=== PATIENT | male | born 1955 | race Caucasian/White ===

== ENCOUNTER 2025-03-28 07:54 | Day surgery (SDC) | payer MEDICARE, MEDICAID ==
[~2025-03-28] VITALS: Ht 160 cm; Wt 118.3 kg
[2025-03-28] MEDS: clindamycin-Cleocin 900mg/D5W 50 ML IV ONE (05:30)
[~2025-03-28 07:54] MED LIST: ASPI-1397 PO; BUPIVAcaine/PF 2.5mg/ml (0.25%) 10ml vial ONE; CYAN-36 PO; DULO30CA52 PO; FEXO-404 PO; GABA-535 PO; HYDR-3965 PO; INSU100V41 SQ; LIDOcaine 2% (20mg/ml) 5ml vial ONE; MELO-102 PO; SIMV-45 PO; TAMS-55 PO; TIRZ12.5 SQ; TORS5TAB11 PO; TURMERIC
[2025-03-28 09:00] VITALS: BP 128/58; PULSE 62; RESP 16; TEMP 97.6; O2SAT 96
--- NOTE | 2025-03-28 09:26 | ELECTROCARDIOGRAPH REPORT ---
[facility] Test Date: 2025-03-28 Test Time: 09:24:01 Pat Name: MIRIAN BUI Department: [facility] Patient ID: [facility]-[id number] Room: Gender: M [employer] Machine Operator: mariel : 1955 Requested By: MARK MCGARRY Order Number: [id number] Reading MD: Dr. CECILE Garcia Measurements Intervals [place] Rate: 60 P: 83 WA: 162 QRS: 95 QRSD: 118 T: 74 QT: 420 QTc: 420 Interpretive Statements Sinus rhythm Incomplete right bundle branch block Low voltage, precordial leads Probable anteroseptal infarct, old Electronically Signed On 03-28-2025 17:34:[address] CECILE Garcia Please click the below link to view image of tracing.
[2025-03-28] MEDS: ringers solution, lacted 1,000 ML IV SCH (09:43)
[2025-03-28 10:00] LABS: MEAN PLATELET VOLUME 8.6 FL (7.4-10.4); PRE OP HEMATOCRIT 43.8 % (42.0-52.0); PRE OP HEMOGLOBIN 14.7 g/dL (14.0-17.9); PRE OP PLATELET COUNT 138 X10'3 (140-440); PRE OP WHITE BLOOD COUNT 10.3 10'3 (4.8-10.8); RED CELL DISTRIBUTION WIDTH 13.6 % (11.5-14.5)
[2025-03-28 10:18] LABS: CREATININE 2.96 MG/DL (0.60-1.10); PRE OP ALT 32 U/L (30-65); PRE OP ANION GAP 7 (8-16); PRE OP AST 15 U/L (10-37); PRE OP BILIRUB, TOTAL 0.5 MG/DL (0.0-1.0); PRE OP GLUCOSE 187 MG/DL (70-104); PRE OP POTASSIUM 5.1 MMOL/L (3.4-5.1); PRE OP SODIUM 139 MMOL/L (135-145); TOTAL CARBON DIOXIDE 25.9 MMOL/L (24-32); eCRCL 18 ML/MIN; eGFR 21 ML/MIN
[2025-03-28] MEDS ORDERED: propofol inj 20 ML IV ONE (11:06)
[2025-03-28] MEDS: BUPIVAcaine/PF 2.5mg/ml (0.25%) 10ml vial IJ ONE (11:15)
[2025-03-28 11:27] VITALS: BP 129/80; PULSE 68; RESP 14; O2SAT 98
[2025-03-28 11:40] VITALS: BP 131/74; PULSE 73; RESP 14; O2SAT 95
[2025-03-28 11:50] VITALS: BP 141/81; PULSE 67; RESP 16; O2SAT 95
[2025-03-28 12:00] VITALS: BP 136/75; PULSE 63; RESP 14; O2SAT 95
--- NOTE | 2025-03-28 16:48 | OPERATIVE REPORT ---
Operative Report Providers to ~ Date of Procedure: Mar 28, 2025 Pre-Operative Diagnosis: rt carpal tunnel syndrome Post-Operative Diagnosis SAME as PRE-Op Procedure Performed right open carpal tunnel release Surgeon: Luis Stanton MD Prize Fighter none Anesthesiologist: Edson Constantino Type of Anesthesia: Other Findings: Estimated Blood Loss: none Specimen Removed: none Description of Procedure: INDICATIONS: This patient is a 70 year old man with left sided carpal tunnel syndrome refractory to conservative treatment. Surgery is indicated for relief of symptoms. Procedure- The risks, benefits, expected results, and possible complications of the planned procedure had been explained to the patient and informed consent obtained. PROCEDURE- The arm was prepped and draped in the usual manner. Local anesthetic was injected proximal to the volar wrist area. An incision was made in the palm ulnar to the thenar crease in line with the ring finger. Blunt dissection was performed through deeper tissues until the transverse carpal ligament was encountered. The carpal tunnel was entered with an incision in line with the skin incision. The nerve was protected and the ligament was released distally and proximally. The forearm fascia proximal to the incision was released using bunt Metzenbaum scissors. The nerve was decompressed at this point. The wound was irrigated and the small bleeders were cauterized. The wound was then closed with 5-O nylon sutures. The tourniquet was released and the hand perfused well.A sterile dressing was applied. The patient was then taken to the recovery room in stable condition. The patient tolerated the procedure well. MARK STANTON Jr., MD Mar 28, 2025 16:48
== END 2025-03-28 12:27 | disposition home or self-care (01) ==
LOC: PAS 07:54
PROVIDERS: ATTEND Orthopaedic Surgery Hand Surgery
DX: G56.01 Carpal tunnel syndrome, right upper limb (principal); E11.9 Type 2 diabetes mellitus without complications; Z87.891 Personal history of nicotine dependence; Z88.0 Allergy status to penicillin
CPT/HCPCS: 36415; 64721; 80053; 82948; 85025; 93005; A4215; A6449; J2003; J2704; J3490; J7030; J7120; Z7506; Z7512; Z7610